=== PATIENT | male | born 1960 | race Caucasian/White ===

== ENCOUNTER 2019-06-29 20:25 | Emergency (ER) | payer OTHER ==
[~2019-06-29] VITALS: Ht 167.6 cm; Wt 94.3 kg
[~2019-06-29 20:25] MED LIST: ASPI81TA31 PO; ATEN25TA PO; ATOR10TA PO
--- NOTE | 2019-06-29 20:58 | NUR ---
DR. STEWART AT BEDSIDE FOR MSE.
[2019-06-29 21:04] VITALS: BP 121/66
--- NOTE | 2019-06-29 21:04 | NUR ---
Patient discharged to home in stable conditon. Written and verbal after care instructions given. Patient verbalizes understanding of instructions. PATIENT LEFT WITH STABLE GAIT.
== END 2019-06-29 21:04 | disposition home or self-care (01) ==
LOC: ER 20:27
DX: M77.8 Other enthesopathies, not elsewhere classified (principal); K21.9 Gastro-esophageal reflux disease without esophagitis; E78.5 Hyperlipidemia, unspecified; F17.200 Nicotine dependence, unspecified, uncomplicated; Z79.82 Long term (current) use of aspirin; Z79.899 Other long term (current) drug therapy
CPT/HCPCS: A4663

== ENCOUNTER 2019-08-09 17:22 | Emergency (ER) | payer OTHER ==
[~2019-08-09] VITALS: Ht 165.1 cm; Wt 95.3 kg
--- NOTE | 2019-08-09 17:52 | NUR ---
Dr lopez into eval patient.
[2019-08-09] MEDS ORDERED: HYDROCODONE/APAP 5-325MG TABLET ONE (17:57)
[2019-08-09] MEDS: HYDROCODONE/APAP 5-325MG TABLET PO ONE (17:58)
--- NOTE | 2019-08-09 18:28 | NUR ---
Patient C/O 'heart burn" Dr Anderson aware.
[2019-08-09] MEDS ORDERED: MAG HYDROX/AL HYDROX/SIMETH 30 ML LIQUID UDC ONE (18:30)
[2019-08-09] MEDS: MAG HYDROX/AL HYDROX/SIMETH 30 ML LIQUID UDC PO ONE (18:31)
--- NOTE | 2019-08-09 19:00 | NUR ---
DR OLIVER MADE PATIENT AWARE OF TEST RESULTS.
[2019-08-09 19:24] VITALS: BP 119/78
--- NOTE | 2019-08-09 19:24 | NUR ---
Patient discharged to home in stable conditon. Written and verbal after care instructions given. Patient verbalizes understanding of instructions.
== END 2019-08-09 19:28 | disposition home or self-care (01) ==
LOC: ER 17:22
DX: S00.01XA Abrasion of scalp, initial encounter (principal); I48.91 Unspecified atrial fibrillation; E78.5 Hyperlipidemia, unspecified; F17.200 Nicotine dependence, unspecified, uncomplicated; Z79.82 Long term (current) use of aspirin; Z79.899 Other long term (current) drug therapy; W22.8XXA Striking against or struck by other objects, initial encounter; Y93.89 Activity, other specified; Y92.89 Other specified places as the place of occurrence of the external cause; Y99.8 Other external cause status
CPT/HCPCS: 70450; A4663

== ENCOUNTER 2021-05-24 19:14 | Emergency (ER) | payer OTHER ==
[~2021-05-24] VITALS: Ht 165.1 cm; Wt 88.5 kg
--- NOTE | 2021-05-24 19:25 | NUR ---
PT AMBULATED WITH STEADY GAIT TO ER C/O WORSENING CHRONIC BACK PAIN. A/O X4, NO SOB OR LABORED BREATHING, AFEBRILE. DENIES CP/PRESSURE. NO GI/ DISTRESS.
--- NOTE | 2021-05-24 19:45 | NUR ---
DR. DOMINGUEZ AT BEDSIDE, MSE IN PROGRESS.
[2021-05-24] MEDS: KETOROLAC TROMETHAMINE 60 MG INJ IM ONE (20:14)
[2021-05-24] MEDS: HYDROMORPHONE 1 MG/1 ML DISP.SYRIN IM ONE (20:14)
[2021-05-24] MEDS ORDERED: KETOROLAC TROMETHAMINE 60 MG INJ IM ONE (20:16)
[2021-05-24] MEDS ORDERED: HYDROMORPHONE 2 MG/1 ML DISP.SYRIN ONE (20:16)
[2021-05-24] MEDS ORDERED: HYDROMORPHONE 1 MG/1 ML DISP.SYRIN ONE (20:16)
[2021-05-24] MEDS: ONDANSETRON ODT 4 MG TAB.RAPDIS SL ONE (20:25)
[2021-05-24] MEDS ORDERED: ONDANSETRON ODT 4 MG TAB.RAPDIS ONE (20:31)
--- NOTE | 2021-05-24 20:40 | NUR ---
PT BEING TAKEN DOWN FOR XRAY.
--- NOTE | 2021-05-24 20:53 | NUR ---
PT RETURNED FROM XRAY.
[2021-05-24] MEDS ORDERED: OXYC-128 PO (21:15)
--- NOTE | 2021-05-24 21:26 | NUR ---
Patient discharged to home in stable condition. Denies any pain/discomfort upon discharge. Written and verbal after care instructions given. Patient verbalizes understanding of instructions. Stressed follow up or return to ER for worsening s/s. Steady gait. Picked up by .
[2021-05-24 21:27] VITALS: BP 142/88
== END 2021-05-24 21:27 | disposition home or self-care (01) ==
LOC: ER 19:14
DX: S39.012A Strain of muscle, fascia and tendon of lower back, initial encounter (principal); X58.XXXA Exposure to other specified factors, initial encounter; Y92.89 Other specified places as the place of occurrence of the external cause; E66.9 Obesity, unspecified; Z68.32 Body mass index [BMI] 32.0-32.9, adult; E78.5 Hyperlipidemia, unspecified; I48.91 Unspecified atrial fibrillation; Z79.82 Long term (current) use of aspirin; Z79.899 Other long term (current) drug therapy
CPT/HCPCS: 72100; 96372; 99283; J1170 ×2; J1885; A4663; Q0162

== ENCOUNTER 2021-05-28 15:17 | Emergency (ER) | payer OTHER ==
[~2021-05-28] VITALS: Ht 165.1 cm; Wt 88.5 kg
[~2021-05-28 15:17] MED LIST changes: +OXYC-128 PO
[2021-05-28] MEDS ORDERED: IBUPROFEN 600 MG TABLET PO ONE (15:45)
[2021-05-28] MEDS ORDERED: ACETAMINOPHEN 325 MG TABLET PO ONE (15:45)
[2021-05-28] MEDS ORDERED: ACETAMINOPHEN ES 500 MG TABLET ONE (16:25)
[2021-05-28] MEDS ORDERED: IBUPROFEN 600 MG TABLET ONE (16:26)
--- NOTE | 2021-05-28 16:57 | NUR ---
Patient discharged to home in stable condition. Written and verbal after care instructions given. Patient verbalizes understanding of instructions. Stressed follow up or return to ER for worsening s/s.PT WALKS IN STEADY GAIT.
[2021-05-28 16:58] VITALS: BP 129/81
== END 2021-05-28 16:58 | disposition home or self-care (01) ==
LOC: ER 15:17
DX: S06.0X0A Concussion without loss of consciousness, initial encounter (principal); W20.8XXA Other cause of strike by thrown, projected or falling object, initial encounter; Y92.039 Unspecified place in apartment as the place of occurrence of the external cause; G44.319 Acute post-traumatic headache, not intractable; E78.5 Hyperlipidemia, unspecified; E66.9 Obesity, unspecified; Z68.32 Body mass index [BMI] 32.0-32.9, adult; Z79.899 Other long term (current) drug therapy; Z79.82 Long term (current) use of aspirin
CPT/HCPCS: 70450; A4663; A9150

== ENCOUNTER 2022-02-18 15:59 | Emergency (ER) | payer OTHER ==
[~2022-02-18] VITALS: Ht 167.6 cm; Wt 90.7 kg
--- NOTE | 2022-02-18 16:43 | NUR ---
Patient discharged to home in stable condition with brisk steady gait. Written and verbal after care instructions given. Patient verbalizes understanding and compliance of instructions. Stressed follow up with primary doctor or return to ER for worsening s/s.
== END 2022-02-18 16:44 | disposition home or self-care (01) ==
LOC: ER 15:59
DX: S39.012A Strain of muscle, fascia and tendon of lower back, initial encounter (principal); X58.XXXA Exposure to other specified factors, initial encounter; Y92.89 Other specified places as the place of occurrence of the external cause; Y99.8 Other external cause status; E78.5 Hyperlipidemia, unspecified; Z79.82 Long term (current) use of aspirin; Z79.899 Other long term (current) drug therapy; F17.200 Nicotine dependence, unspecified, uncomplicated
CPT/HCPCS: 71045; A4663

== ENCOUNTER 2022-03-24 11:32 | Emergency (ER) | payer OTHER ==
[~2022-03-24] VITALS: Ht 167.6 cm; Wt 90.7 kg
--- NOTE | 2022-03-24 11:49 | NUR ---
at bedside to examine pt.
[2022-03-24] MEDS ORDERED: ACETAMINOPHEN 325 MG TABLET PO ONE (12:15)
[2022-03-24] MEDS ORDERED: ACETAMINOPHEN 325 MG TABLET ONE (12:18)
--- NOTE | 2022-03-24 13:33 | NUR ---
DCD instruction given to pt. who verbalized undertanding, pt. left room [id number]. steady gait. no longer with c/o pain.
== END 2022-03-24 13:37 | disposition home or self-care (01) ==
LOC: ER 11:37
DX: R51.9 Headache, unspecified (principal); M79.672 Pain in left foot; M25.572 Pain in left ankle and joints of left foot; E78.5 Hyperlipidemia, unspecified; Z79.899 Other long term (current) drug therapy; E66.9 Obesity, unspecified; Z79.82 Long term (current) use of aspirin
CPT/HCPCS: 70450; 72170; 73030; 73590; 73610; 73630; A4663